=== PATIENT | male | born 1975 | race Caucasian/White ===

== ENCOUNTER 2017-04-06 19:56 | Emergency (ER) | payer OTHER ==
[~2017-04-06] VITALS: Ht 185.4 cm; Wt 78.0 kg
[2017-04-06 20:18] VITALS: BP 140/89; PULSE 65; RESP 15; TEMP 98.4; O2SAT 98
[2017-04-06] MEDS ORDERED: SODIUM CHLOR 0.9% 1000 ML INJ 1,000 ML IV SCH (20:25)
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
[2017-04-06] MEDS ORDERED: ONDANSETRON HCL 4 MG/2 ML VIAL IV PUSH ONE (20:30)
[2017-04-06 23:16] VITALS: BP 161/82; PULSE 67; RESP 20; TEMP 98.3; O2SAT 98
[2017-04-07 02:20] VITALS: BP 122/72; PULSE 75; RESP 18; O2SAT 99
[2017-04-07 06:24] VITALS: RESP 17
[2017-04-07 08:21] LABS: AUTOMATED NEUTROPHIL # 5.1 TH/MM3 (1.8-7.7); BASOPHIL % 0.3 % (0.0-2.0); EOSINOPHIL % 0.2 % (0.0-4.0); HEMATOCRIT 50.7 % (39.0-51.0); LYMPH % 29.1 % (9.0-44.0); LYMPHOCYTE # 2.4 TH/MM3 (1.0-4.8); MEAN CELL VOLUME 83.2 FL (80.0-100.0); MEAN CORPUSCULAR HEMOGLOBIN 27.9 PG (27.0-34.0); MEAN CORPUSCULAR HGB CONC 33.5 % (32.0-36.0); MEAN PLATELET VOLUME 10.6 FL (7.0-11.0); MONO % 9.3 % (0.0-8.0); MONOCYTE # 0.8 TH/MM3 (0-0.9); NEUT % 61.1 % (16.0-70.0); PLATELET COUNT 166 TH/MM3 (150-450); RED BLOOD COUNT 6.09 MIL/MM3 (4.50-5.90); RED CELL DISTRIBUTION WIDTH 14.8 % (11.6-17.2); WHITE BLOOD COUNT 8.4 TH/MM3 (4.0-11.0)
[2017-04-07 08:34] LABS: ALBUMIN 4.6 GM/DL (3.4-5.0); ALT (GPT) 59 U/L (12-78); BICARBONATE 26.2 MEQ/L (21.0-32.0); BLOOD UREA NITROGEN 10 MG/DL (7-18); CALCIUM 9.3 MG/DL (8.5-10.1); CHLORIDE 104 MEQ/L (98-107); CREATININE 1.32 MG/DL (0.60-1.30); GLOMERULAR FILTRATION RATE 60 ML/MIN (>89); GLUCOSE,RANDOM 87 MG/DL (74-106); SODIUM (NA) 137 MEQ/L (136-145)
[2017-04-07 08:37] LABS: ALKALINE PHOSPHATASE 74 U/L (45-117); AST (GOT) 69 U/L (15-37); TOTAL BILIRUBIN ADULT 1.2 MG/DL (0.2-1.0); TOTAL PROTEIN 8.4 GM/DL (6.4-8.2)
--- NOTE | 2017-04-07 09:20 | PD ---
Physical Exam Date Seen by Provider: Apr 07, 2017 Narrative 41-year-old male presents to the emergency department with a psychotic episode. Patient was apparently walking around his neighborhood with a child and was taking to the hospital. Patient was evaluated by [facility] and labs were significant for slight elevation of ammonia level. Patient's labs were repeated and ammonia level was normal here at [place]. At this time patient denies suicidal or homicidal ideations. Patient denies hallucinations, denies illicit drug use. Patient was evaluated by psychiatry and Ambrosio act was lifted. Patient agreed to follow up with outpatient therapy and agrees to return to the emergency department for worsening or persistent symptoms. Data Data Last Documented VS Vital Signs Date Time Temp Pulse Resp B/P (MAP) Pulse Ox O2 Delivery O2 Flow Rate FiO2 04/07/17 06:24 17 04/07/17 02:20 75 99 Room Air 04/06/17 23:16 98.3 Orders Orders Sodium Chlor 0.9% 1000 Ml Inj (Ns 1000 M (04/06/17 20:25) Ondansetron Inj (Zofran Inj) (04/06/17 20:30) Psych Screen (04/06/17 20:27) Diet Regular Basic (04/07/17 Breakfast) Complete Blood Count With Diff (04/07/17 08:08) Comprehensive Metabolic Panel (04/07/17 08:08) Ammonia (04/07/17 08:08) Labs Laboratory Tests Test 04/07/17 08:00 White Blood Count 8.4 TH/MM3 Red Blood Count 6.09 MIL/MM3 Hemoglobin 17.0 GM/DL Hematocrit 50.7 % Mean Corpuscular Volume 83.2 FL Mean Corpuscular Hemoglobin 27.9 PG Mean Corpuscular Hemoglobin Concent 33.5 % Red Cell Distribution Width 14.8 % Platelet Count 166 TH/MM3 Mean Platelet Volume 10.6 FL Neutrophils (%) (Auto) 61.1 % Lymphocytes (%) (Auto) 29.1 % Monocytes (%) (Auto) 9.3 % Eosinophils (%) (Auto) 0.2 % Basophils (%) (Auto) 0.3 % Neutrophils # (Auto) 5.1 TH/MM3 Lymphocytes # (Auto) 2.4 TH/MM3 Monocytes # (Auto) 0.8 TH/MM3 Eosinophils # (Auto) 0.0 TH/MM3 Basophils # (Auto) 0.0 TH/MM3 CBC Comment DIFF FINAL Differential Comment Blood Urea Nitrogen 10 MG/DL Creatinine 1.32 MG/DL Random Glucose 87 MG/DL Total Protein 8.4 GM/DL Albumin 4.6 GM/DL Calcium Level 9.3 MG/DL Alkaline Phosphatase 74 U/L Aspartate Amino Transf (AST/SGOT) 69 U/L Alanine Aminotransferase (ALT/SGPT) 59 U/L Total Bilirubin 1.2 MG/DL Sodium Level 137 MEQ/L Potassium Level 3.8 MEQ/L Chloride Level 104 MEQ/L Carbon Dioxide Level 26.2 MEQ/L Anion Gap 7 MEQ/L Estimat Glomerular Filtration Rate 60 ML/MIN Ammonia 23 MCMOL/L MDM Supervised Visit with VAZQUEZ: Yes Diagnosis Primary Impression: Medical clearance for psychiatric admission Scripts No Active Prescriptions or Reported Meds Venus Ty Apr 07, 2017 09:20
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
== END 2017-04-07 11:14 | disposition home or self-care (01) ==
LOC: NEPD 19:56 → NEPJ 04-07 11:14
DX: Z00.8 Encounter for other general examination (principal); S00.81XA Abrasion of other part of head, initial encounter; E72.20 Disorder of urea cycle metabolism, unspecified; Y04.2XXA Assault by strike against or bumped into by another person, initial encounter; Z72.0 Tobacco use
CPT/HCPCS: 80053; 82140; 85025; 99284